=== PATIENT | female | born 1930 | race Two or more races ===

== ENCOUNTER 2017-03-21 17:12 | Inpatient (IN) | payer MEDICARE ==
[~2017-03-21] VITALS: Ht 154.9 cm; Wt 50.4 kg
[2017-03-21] MEDS ORDERED: ATEN25TA PO (17:41)
[2017-03-21] MEDS ORDERED: LISI5TAB7 PO (17:41)
[2017-03-21] MEDS ORDERED: METF500T4 PO (17:41)
[2017-03-21] MEDS ORDERED: SODIUM CHLORIDE 0.9% 1,000ML IVBOLUS ONE (18:00)
[2017-03-21] MEDS ORDERED: ONDANSETRON 2MG/ML, 2ML IVPush ONE (18:00)
[2017-03-21] MEDS ORDERED: SODIUM CHLORIDE FLUSH 10ML SYR IVF ONE (18:00)
[2017-03-21 18:04] LABS: HEMATOCRIT 30.5 % (34.6-47.8); HEMOGLOBIN 9.9 g/dL (11.7-16.4); WHITE BLOOD COUNT 12.6 x10^3/uL (3.4-10)
[2017-03-21 18:17] LABS: ASPARTATE AMINO TRANSFERASE 42 U/L (15-37); BLOOD UREA NITROGEN 17 mg/dL (7-18)
[2017-03-21 18:23] LABS: IS PT STATUS REG ER OR PRE ER? YES
[2017-03-21] MEDS ORDERED: ONDANSETRON 2MG/ML, 2ML ONE (18:27)
[2017-03-21] MEDS ORDERED: morphine SULFATE 10 MG/ML, 1ML ONE ×2 (18:27→20:39)
[2017-03-21] MEDS: MORPHINE SULFATE 4 MG/ML, 1ML IVPush PRN ×2 (18:33→20:44)
[2017-03-21] MEDS ORDERED: OMNIPAQUE 350 MG/ML, 100ML BOTTLE ONE (18:51)
[2017-03-21 19:23] LABS: DIFF TOTAL CELLS COUNTED 100 CELL DIFF
[2017-03-21 19:26] LABS: ANISOCYTOSIS 1+; OVALOCYTES 1+; POLYCHROMASIA 1+; VERIFY COUNTS? YES
[2017-03-21] MEDS ORDERED: CEFTRIAXONE PMX 1GM/50ML 50 ML IV ONE (21:00)
[2017-03-21] MEDS ORDERED: SODIUM CHLORIDE 0.9% 1,000 ML IV ONE (21:00)
[2017-03-21] MEDS ORDERED: ONDANSETRON 2MG/ML, 2ML IVPush PRN ×2 (21:00→22:00)
[2017-03-21] MEDS ORDERED: MORPHINE SULFATE 4 MG/ML, 1ML IVPush PRN (21:00)
[2017-03-21] MEDS ORDERED: CEFTRIAXONE PMX 1GM/50ML 50 ML ONE (21:07)
[2017-03-21] MEDS ORDERED: ENOXAPARIN 40 MG/0.4 ML SQ SCH (22:00)
[2017-03-21] MEDS ORDERED: KETOROLAC 30 MG/1 ML IVPush ONE (22:00)
[2017-03-21] MEDS ORDERED: ACETAMINOPHEN 325 MG TABLET PO PRN (22:00)
[2017-03-21 22:30] VITALS: BP 127/60
[2017-03-21] MEDS ORDERED: KETOROLAC 30 MG/1 ML IVPush PRN (23:00)
[2017-03-22] MEDS: SODIUM CHLORIDE 0.9% 1,000 ML IV SCH ×3 (00:04→18:46)
[2017-03-22 03:26] VITALS: BP 102/47
[2017-03-22 05:58] LABS: BLOOD UREA NITROGEN 19 mg/dL (7-18); HEMOGLOBIN 8.9 g/dL (11.7-16.4); WHITE BLOOD COUNT 6.6 x10^3/uL (3.4-10)
[2017-03-22 07:27] LABS: DIFF TOTAL CELLS COUNTED 100 CELL DIFF
[2017-03-22 07:30] LABS: VERIFY COUNTS? YES
[2017-03-22 07:31] LABS: POLYCHROMASIA 1+
[2017-03-22] MEDS ORDERED: METRONIDAZOLE PMX 500MG/100ML 100 ML IV SCH (08:00)
[2017-03-22] MEDS: ATENOLOL 25 MG TABLET PO SCH (09:00)
[2017-03-22] MEDS ORDERED: CEFTRIAXONE PMX 1GM/50ML 50 ML IV SCH (09:00)
[2017-03-22] MEDS: LISINOPRIL 5 MG TABLET PO SCH (09:00)
[2017-03-22 14:00] VITALS: BP 90/46
[2017-03-22] MEDS ORDERED: FENTANYL PF 100 MCG/2ML ONE ×2 (16:17)
[2017-03-22] MEDS ORDERED: NEOSTIGMINE 1 MG/ML, 10ML ONE (16:18)
[2017-03-22] MEDS ORDERED: GLYCOPYRROLATE 0.2MG/1ML, 5ML ONE (16:18)
[2017-03-22] MEDS ORDERED: SUCCINYLCHOLINE 20 MG/ML, 10ML ONE (16:18)
[2017-03-22] MEDS ORDERED: ROCURONIUM 10 MG/ML,10ML ONE (16:18)
[2017-03-22] MEDS ORDERED: PROPOFOL 10 MG/ML, 20ML ONE (16:18)
[2017-03-22] MEDS ORDERED: HYDROmorphone 1 MG/ML, 1ML IV PRN (17:00)
[2017-03-22] MEDS ORDERED: LABETALOL 5MG/ML, 20ML IV PRN (17:00)
[2017-03-22] MEDS ORDERED: MEPERIDINE/PF 25MG/0.5ML IVPush PRN (17:00)
[2017-03-22] MEDS ORDERED: OXYcodone 5 MG/5 ML ORAL.SOL UDC PO PRN (17:00)
[2017-03-22] MEDS ORDERED: hydrALAzine 20 MG/ML, 1ML IV PRN (17:00)
[2017-03-22] MEDS ORDERED: ONDANSETRON 2MG/ML, 2ML IVPush PRN (17:00)
[2017-03-22] MEDS ORDERED: PROMETHAZINE 25 MG/ML, 1ML IV PRN (17:00)
[2017-03-22] MEDS ORDERED: FENTANYL PF 100 MCG/2ML IV PRN (17:00)
[2017-03-22] MEDS ORDERED: ETOMIDATE 20 MG/10 ML ONE (17:10)
[2017-03-22 17:25] VITALS: BP 127/60
[2017-03-22] MEDS ORDERED: NOREPINEPHRINE 4 MG in SODIUM CHLORIDE 0.9% 246 ML IV PRN (17:30)
[2017-03-22] MEDS ORDERED: MIDAZOLAM 1 MG/ML, 2ML ONE ×2 (17:32)
[2017-03-22] MEDS ORDERED: PROPOFOL 0 ML IV ONE (18:27)
[2017-03-22] MEDS ORDERED: VANCOMYCIN PMX 1GM/200ML 200 ML IV ONE (18:30)
[2017-03-22] MEDS ORDERED: NOREPINEPHRINE 8 MG in SODIUM CHLORIDE 0.9% 242 ML IV PRN (18:30)
[2017-03-22] MEDS ORDERED: DEXTROSE 50%, 50ML SYRINGE ONE ×2 (18:30→18:33)
[2017-03-22 18:38] LABS: BLOOD UREA NITROGEN 23 mg/dL (7-18)
[2017-03-22 18:44] LABS: IS PT STATUS REG ER OR PRE ER? NO
[2017-03-22] MEDS: PIPERACILLIN/TAZO/PMX 3.375GM 50 ML IV SCH (18:46)
[2017-03-22 19:14] LABS: WHITE BLOOD COUNT 9.7 x10^3/uL (3.4-10)
[2017-03-22 19:17] LABS: HEMOGLOBIN 6.9 g/dL (11.7-16.4)
[2017-03-22 19:18] LABS: HEMATOCRIT 20.6 % (34.6-47.8)
[2017-03-22] MEDS ORDERED: DEXTROSE 50%, 50ML SYRINGE IVPush ONE (19:30)
[2017-03-22 19:32] LABS: DIFF TOTAL CELLS COUNTED 200 CELL DIFF
[2017-03-22 19:33] LABS: POLYCHROMASIA 1+; VERIFY COUNTS? YES
[2017-03-22 19:35] LABS: SMALL PLATELETS 1+
[2017-03-22] MEDS ORDERED: VASOPRESSIN 100 UNIT in SODIUM CHLORIDE 0.9% 495 ML IV PRN (19:59)
[2017-03-22] MEDS ORDERED: PROPOFOL 100 ML IV PRN (19:59)
[2017-03-22] MEDS ORDERED: SENNOSIDES 8.8 MG/5 ML ORAL SOL NG PRN (20:00)
[2017-03-22] MEDS ORDERED: LIDOCAINE-MPF 1%, 2ML ENDO PRN (20:00)
[2017-03-22] MEDS ORDERED: FENTANYL PF 100 MCG/2ML IVPush PRN (20:00)
[2017-03-22] MEDS ORDERED: LACTULOSE 20 GM/30 ML UDC NG PRN (20:00)
[2017-03-22] MEDS ORDERED: SENNA/DOCUSATE TABLET NG PRN (20:00)
[2017-03-22] MEDS ORDERED: PHARMACY MAY ADJ FOR RENAL FX MC SCH (20:00)
[2017-03-22] MEDS ORDERED: SODIUM CHLORIDE 0.9% 1,000ML IVBOLUS ONE ×2 (20:00)
[2017-03-22] MEDS ORDERED: SODIUM CHLORIDE 0.9% 1,000ML IV SCH (20:00)
[2017-03-22] MEDS ORDERED: BISACODYL 10 MG SUPP PR PRN (20:00)
[2017-03-22 20:14] LABS: HEMATOCRIT 23.1 % (34.6-47.8); HEMOGLOBIN 7.7 g/dL (11.7-16.4)
[2017-03-22] MEDS: FAMOTIDINE 20 MG/2 ML IV SCH (20:42)
[2017-03-22 21:05] LABS: ABG COLLECTION SITE RIGHT RADIAL; COLLATERAL CIRCULATION TESTING NORMAL
[2017-03-22 21:06] LABS: IS PT STATUS REG ER OR PRE ER? NO
[2017-03-22] MEDS ORDERED: POTASSIUM CHLORIDE PMX 100 ML IV ONE ×2 (21:30→22:00)
[2017-03-22] MEDS ORDERED: MAGNESIUM SULFATE PMX 4GM/100M 100 ML IV ONE (21:30)
[2017-03-22 21:44] LABS: GAS LOT CARD-20261
[2017-03-22 22:14] LABS: GAS OBC PASS; GASTRIC OCCULT BLD POSITIVE (NEGATIVE); GASTRIC PH 4 (1-7)
[2017-03-22] MEDS: ALBUTEROL/IPRATROPIUM 2.5MG/0.5MG, 3 ML INLINE SCH (22:34)
[2017-03-23] MEDS: NOREPINEPHRINE 8 MG in SODIUM CHLORIDE 0.9% 242 ML IV PRN ×2 (00:04→05:08)
[2017-03-23] MEDS ORDERED: SODIUM BICARBONATE 1 MEQ/ML, 50ML VIAL IVPush ONE (00:30)
[2017-03-23] MEDS ORDERED: SODIUM BICARBONATE 8.4% 100 MEQ in DEXTROSE 5% 1,000 ML IV SCH (00:30)
[2017-03-23] MEDS ORDERED: EPINEPHRINE 2 MG in SODIUM CHLORIDE 0.9% 248 ML IV PRN (00:30)
[2017-03-23] MEDS: PIPERACILLIN/TAZO/PMX 3.375GM 50 ML IV SCH ×2 (00:44→06:03)
[2017-03-23] MEDS ORDERED: ASPI-191 PO (01:58)
[2017-03-23] MEDS ORDERED: CARV3.12 PO (01:58)
[2017-03-23] MEDS: ALBUTEROL/IPRATROPIUM 2.5MG/0.5MG, 3 ML INLINE SCH ×3 (02:10→06:46)
[2017-03-23 04:30] LABS: BLOOD UREA NITROGEN 24 mg/dL (7-18)
[2017-03-23 04:32] LABS: HEMATOCRIT 23.4 % (34.6-47.8); HEMOGLOBIN 7.6 g/dL (11.7-16.4); WHITE BLOOD COUNT 13.1 x10^3/uL (3.4-10)
[2017-03-23 04:59] LABS: DIFF TOTAL CELLS COUNTED 100 CELL DIFF
[2017-03-23 05:02] LABS: VERIFY COUNTS? YES
[2017-03-23 05:03] LABS: POLYCHROMASIA 1+; SMALL PLATELETS 1+
[2017-03-23 05:52] LABS: IS PT STATUS REG ER OR PRE ER? NO
[2017-03-23] MEDS: SODIUM CHLORIDE 0.9% 1,000 ML IV SCH (06:05)
[2017-03-23] MEDS: LISINOPRIL 5 MG TABLET PO SCH (08:16)
[2017-03-23] MEDS: ATENOLOL 25 MG TABLET PO SCH (08:21)
[2017-03-23] MEDS ORDERED: SODIUM BICARBONATE 8.4% 150 MEQ in DEXTROSE 5% 1,000 ML IV SCH (08:30)
[2017-03-23] MEDS: FAMOTIDINE 20 MG/2 ML IV SCH (08:32)
[2017-03-23] MEDS: SODIUM BICARB 8.4%, 50ML SYRINGE IVPush SCH ×2 (08:33→08:34)
[2017-03-23] MEDS ORDERED: LORazepam 2 MG/ML, 1ML ONE (09:22)
[2017-03-23] MEDS ORDERED: morphine SULFATE 10 MG/ML, 1ML ONE (09:22)
[2017-03-23] MEDS ORDERED: ATROPINE OPHTH SOLN 1%, 2ML PO PRN (11:00)
[2017-03-23] MEDS ORDERED: LORazepam 2 MG/ML, 1ML IV ONE (11:00)
[2017-03-23] MEDS ORDERED: morphine SULFATE 10 MG/ML, 1ML IV PRN (11:00)
[2017-03-23] MEDS ORDERED: LORazepam 2 MG/ML, 1ML IV PRN (11:00)
[2017-03-23] MEDS ORDERED: morphine SULFATE 10 MG/ML, 1ML IV ONE (11:00)
== END 2017-03-23 09:52 | disposition expired | DRG 871 ==
LOC: ED 18:29 → EDIP 21:00 → SUATTDRO 21:20 → 3NE 22:10 → CCU 03-22 17:58
PROVIDERS: ADMIT Internal Medicine; ATTEND Internal Medicine
PROC: 5A1935Z Respiratory Ventilation, Less than 24 Consecutive Hours (ICD-10-PCS; principal; 2017-03-21)
PROC: 0BH17EZ Insertion of Endotracheal Airway into Trachea, Via Natural or Artificial Opening (ICD-10-PCS; 2017-03-21)
PROC: 0T9B70Z Drainage of Bladder with Drainage Device, Via Natural or Artificial Opening (ICD-10-PCS; 2017-03-21)
PROC: 02HV33Z Insertion of Infusion Device into Superior Vena Cava, Percutaneous Approach (ICD-10-PCS; 2017-03-22)
DX: A41.9 Sepsis, unspecified organism (principal); E43 Unspecified severe protein-calorie malnutrition; J96.00 Acute respiratory failure, unspecified whether with hypoxia or hypercapnia; I21.4 Non-ST elevation (NSTEMI) myocardial infarction; N17.0 Acute kidney failure with tubular necrosis; R65.21 Severe sepsis with septic shock; D69.6 Thrombocytopenia, unspecified; E87.2 Acidosis; K80.42 Calculus of bile duct with acute cholecystitis without obstruction; N17.9 Acute kidney failure, unspecified; K81.2 Acute cholecystitis with chronic cholecystitis; E44.0 Moderate protein-calorie malnutrition; D64.9 Anemia, unspecified; E11.9 Type 2 diabetes mellitus without complications; E87.6 Hypokalemia; I11.9 Hypertensive heart disease without heart failure; K82.8 Other specified diseases of gallbladder; Z53.8 Procedure and treatment not carried out for other reasons; Z90.49 Acquired absence of other specified parts of digestive tract; Z68.21 Body mass index [BMI] 21.0-21.9, adult; Z66 Do not resuscitate
CPT/HCPCS: 36415; 36600; 71010; 74177; 76700; 78227; 80048; 80053; 80076; 81001; 82271; 82533; 82803; 82962; 83605; 83690; 83735; 84100; 84145; 84478; 84484; 85014; 85018; 85025; 87040; 87070; 87081; 87205; 93005; 94002; 94003; 94640; 96361; 96374; 96375; 96376; J0696; J1650; J1885; J2250; J2405; J2543; J2704; J2710; J3010; J3370; J3480; J3490; J7070; J7620; Q9967; A9537; C9898; J0171; J0330; J2060; J2270; J3475; J7030; J7040; J7050; S0028